=== PATIENT | male | born 1995 | race Two or more races ===

== ENCOUNTER 2017-01-07 18:34 | Emergency (ER) | payer MEDICAID ==
[~2017-01-07 18:34] MED LIST: OMEPRAZOLE20 M1 PO; PHENERGAN25 MG PO; TYLENOL #3 PO
[2017-01-07] MEDS ORDERED: NO MEDICATIONS (18:44)
[2017-01-07 19:08] LABS: URINE SOURCE CLEAN CATCH
[2017-01-07 19:10] LABS: URINE APPEARANCE CLOUDY; URINE BLOOD 3+ (NEG); URINE COLOR YELLOW; URINE GLUCOSE NEG (NORM); URINE KETONE NEG (NEG); URINE LEUKOCYTE ESTERASE NEG (NEG); URINE NITRATE NEG (NEG); URINE PH 6.5 (5-8); URINE PROTEIN 2+ (NEG); URINE SPECIFIC GRAVITY 1.025 (1.003-1.035)
[2017-01-07 19:11] LABS: MICRO INDICATED? YES
[2017-01-07 19:12] LABS: URINE BILIRUBIN NEG (NEG)
[2017-01-07 19:13] LABS: CULTURE INDICATED? NO; URINE BACTERIA NEG (NEG); URINE MUCUS PRESENT; URINE RBC 200-300 /[HPF] (0-2); URINE SQUAMOUS EPITHELIAL CELL FEW /[HPF]
== END 2017-01-07 20:19 | disposition home or self-care (01) ==
LOC: SED 18:34
PROVIDERS: Emergency Medicine
DX: R31.9 Hematuria, unspecified (principal); K21.9 Gastro-esophageal reflux disease without esophagitis; Z87.442 Personal history of urinary calculi; F17.200 Nicotine dependence, unspecified, uncomplicated
CPT/HCPCS: 81003; 99283

== ENCOUNTER 2017-04-24 10:42 | Emergency (ER) | payer MEDICAID ==
--- NOTE | ~2017-04-24 | CT4 ---
[facility] A Service of [facility] RADIOLOGY TEXT RESULTS PATIENT: ROMY GONZALEZ LOCATION: SED : 95 UNIT #: [id number] AGE: [address]: Louie Fan MD SEX: M ORDER DR: [id number] [address] [address] [id number] MR#: [id number] Acc #: [id number] NAME: ROMY GONZALEZ : 1995 SEX: M STUDY DATE/TIME: 04/24/2017 12:19 UNIT: SED ROOM: STUDY DESCRIPTION: CT Abd and Pelv Wo Cont Attending Physician: Louie Fan M.D. Ordering Physician: Louie Fan M.D. Primary Care Physician: Primary Care Physician No MEDICAL IMAGING REPORT This report is preliminary unless electronic signature is present. EXAM CT abdomen and pelvis without contrast INDICATIONS Right flank pain on and off for 2 months, history of kidney stones. TECHNIQUE CT of the abdomen and pelvis was performed without contrast. Coronal and sagittal reformatted images were obtained. The CT exam was performed with one or more of the following radiation dose reduction techniques: automatic exposure control, adjustment of mA and/or kV according to patient size, and iterative reconstruction. COMPARISON: 04/11/2016. FINDINGS Lung bases are clear. The liver, gallbladder and spleen are unremarkable. Punctate nonobstructing stone in the lower pole of the left kidney. There is moderate to severe right-sided hydronephrosis and hydroureter due to an obstructing 7 mm stone in the mid right ureter. Punctate nonobstructing stones elsewhere within the right kidney. The adrenal glands and pancreas are unremarkable. PELVIS: The colon is unremarkable. The appendix is normal. No free fluid. Bone windows are unremarkable. IMPRESSION 1. 7-mm obstructing stone in the mid right ureter with mild with moderate to severe right-sided hydronephrosis and hydroureter. 2. Tiny nonobstructing stones elsewhere in the kidneys. [facility] A Service of [facility] RADIOLOGY TEXT RESULTS PATIENT: ROMY GONZALEZ LOCATION: SED : 95 UNIT #: [id number] AGE: [address]: Louie Fan MD SEX: M ORDER DR: Dictated by... Alexi Gibson M.D. THIS IS AN ELECTRONICALLY VERIFIED REPORT Alexi Gibson M.D. at 04/25/2017 9:31 AM LYNNETTE/abhinav TD: 04/24/2017 13:16 JOB #: [id number] MEDICAL IMAGING REPORT Page 1 of 1
[~2017-04-24 10:42] MED LIST changes: +NO MEDICATIONS
[2017-04-24 11:21] LABS: URINE SOURCE CLEAN CATCH
[2017-04-24 11:23] LABS: URINE APPEARANCE CLEAR; URINE BILIRUBIN NEG (NEG); URINE BLOOD 2+ (NEG); URINE COLOR YELLOW; URINE GLUCOSE NEG (NORM); URINE KETONE NEG (NEG); URINE LEUKOCYTE ESTERASE NEG (NEG); URINE NITRATE NEG (NEG); URINE PH 5.5 (5-8); URINE PROTEIN NEG (NEG); URINE UROBILINOGEN 0.2 MG/DL (NORM)
[2017-04-24 11:25] LABS: MICRO INDICATED? YES
[2017-04-24 11:28] LABS: CULTURE INDICATED? NO; URINE BACTERIA NEG (NEG); URINE WBC 0-2 /[HPF] (0-5)
[2017-04-24 13:51] LABS: CALCIUM SERUM 10.3 mg/dL (8.4-10.2); CREATININE SERUM 1.2 mg/dL (0.6-1.4); GLOM FILT RATE Estimated 85.9 mL/min (>60); POTASSIUM 4.1 mmol/L (3.5-5.1)
== END 2017-04-24 13:42 | disposition home or self-care (01) ==
LOC: SED 10:42
PROVIDERS: Emergency Medicine
DX: N13.2 Hydronephrosis with renal and ureteral calculous obstruction (principal); F17.200 Nicotine dependence, unspecified, uncomplicated
CPT/HCPCS: 36415; 74176; 80048; 81003; 99284